=== PATIENT | female | born 1990 | race Caucasian/White ===

== ENCOUNTER → 2023-07-29 | Outpatient (CLI) | payer BC ==
[~2023-07-29] MED LIST: ALLEGRA 180MG180 MG PO; CHANTIX 1MG1 MG PO; DEPO-PROVER150 MG/M1 IM; PREDNISONE20 MG PO; PROAIR HFA0.09 MG/AC IH
== END ==
LOC: COL.RAD 08:09
DX: R10.30 Lower abdominal pain, unspecified (principal)

== ENCOUNTER 2024-05-15 20:18 | Emergency (ER) | payer MEDICAID ==
[~2024-05-15] VITALS: Ht 162.6 cm; Wt 79.5 kg
[2024-05-15 20:27] VITALS: TEMP 97.8
[2024-05-16 00:42] LABS: PH 5.5 (5.0-8.5); URINE APPEARANCE CLEAR (CLEAR/HAZY); URINE BLOOD NEGATIVE (NEGATIVE); URINE COLOR YELLOW (YELLOW); URINE GLUCOSE NEGATIVE (NEGATIVE); URINE KETONE NEGATIVE (NEGATIVE); URINE NITRATE NEGATIVE (NEGATIVE); URINE PROTEIN(semi-quant) NEGATIVE (NEGATIVE); URINE UROBILINOGEN 0.2 E.U/dL (0.2-1.0)
[2024-05-16 00:56] LABS: COLLECTION METHOD CLEAN CATCH
[2024-05-16 01:53] VITALS: BP 127/82; PULSE 70
== END 2024-05-16 01:53 | disposition home or self-care (01) ==
LOC: COL.ER 20:18
PROVIDERS: Emergency Medicine
DX: O20.9 Hemorrhage in early pregnancy, unspecified (principal); Z3A.01 Less than 8 weeks gestation of pregnancy

== ENCOUNTER → 2024-05-16 | Outpatient (CLI) | payer MEDICAID | LOC: COL.RAD 05:28 | DX: O46.91 Antepartum hemorrhage, unspecified, first trimester (principal); Z3A.01 Less than 8 weeks gestation of pregnancy ==